=== PATIENT | female | born 2000 | race Two or more races ===

== ENCOUNTER 2025-08-22 21:11 | Emergency (ER) | payer MEDICAID, SELFPAY ==
[2025-08-22 21:56] VITALS: BP 111/70; PULSE 81; RESP 18; TEMP 36.6; O2SAT 98
--- NOTE | 2025-08-22 22:14 | EDNOTE_ITS ---
Upper Respiratory Inf. RME/HPI General Chief Complaint: Flu Like Symptoms Stated Complaint: FLU LIKE SYMPTOMS, 4 MONTHS Time Seen by Provider: 08/22/25 22:13 Source: patient Arrival date/time: 08/22/25 21:11 Mode of arrival: ambulatory Limitations: no limitations RME / HPI Complaint: cough and sore throat Onset (ago): day(s) (2 days) Duration: constant Severity: moderate Severity scale (1-10): 4 Able to tolerate fluids by mouth: Yes Associated symptoms: sore throat and other (Epistaxis x 10 minutes this morning at 10:00) Treatments prior to arrival: none Related Data Allergies Allergy/AdvReac Type Severity Reaction Status Date / Time No Known Allergies Allergy Verified 08/22/25 21:14 Review of Systems Constitutional Constitutional: Reports system reviewed and no additional complaints, except as documented Eyes Eyes: Reports system reviewed and no additional complaints, except as documented, Denies dry eyes, Denies exophthalmos and Reports floaters Cardiovascular Cardiovascular: Denies chest pain with activity and Denies claudication Past Medical History Past Medical History Comments PMH COMMENT: x 4-1/2 months ED Exam Narrative Physical exam: Posterior pharynx is erythematous without any exudate. And there is herpangina throughout General Limitations: Present no limitations General appearance: Present alert and in no apparent distress Head Head exam: Present atraumatic and normocephalic Eye Eye exam: Present normal appearance and EOMI ENT ENT exam: Present normal exam and normal oropharynx Neck Neck exam: Present normal inspection and full ROM Chest Chest inspection: Present normal inspection and symmetric chest wall rise Respiratory Respiratory exam: Present normal lung sounds bilaterally Cardiovascular Cardiovascular exam: Present regular rate and normal rhythm Abdominal Exam Abdominal exam: Present soft Extremities Exam Extremities exam: Present normal inspection and full ROM Back Exam Back exam: Present normal inspection and full ROM Neurological Exam Neurological exam: Present alert and oriented X3 Psychiatric Psychiatric exam: Present normal affect and normal mood Skin Skin exam: Present warm, dry, intact and normal color Course Course Course Narrative: Patient will have a rapid strep performed. Quality Measures none Orders Category Date Time Status Strep A Rapid Stat Lab 08/22/25 22:16 Completed DONE Vital Signs Vital signs: Vital Signs Temperature 97.8 F 08/22/25 21:56 Pulse Rate 81 08/22/25 21:56 Respiratory Rate 18 08/22/25 21:56 Blood Pressure 111/70 08/22/25 21:56 Pulse Oximetry (%) 98 08/22/25 21:56 Oxygen Delivery Method Room Air 08/22/25 21:56 Pulse ox is 98% room air Upper Respiratory Infection MDM Narrative MDM Narrative:: Patient will be discharged in no apparent distress and she is to follow-up with her [employer] DISPATCHER as necessary. Patient is to gargle with warm water and salt. If she becomes worse she may return. Patient data External records reviewed:: Other (specify) Clinical information provided by:: none Social determinants that could affect healthcare access:: none Patient has the following chronic illnesses:: NA How is presenting disease/condition affected by chronic disease/condition?: no chronic disease Evaluation data The following diagnostics were reviewed and interpreted by me:: other (specify) Lab and/or radiology exams considered but not ordered:: NA Interpretation Summary: NA Medications / Prescriptions Medications or Prescriptions considered but not ordered:: NA Medication administrations:: NA Consultations Consultation(s) initiated? (list below): No Consultation #1 (Physician, Specialty, Details): NA Diagnosis Upper Respiratory Differential Diagnosis: upper respiratory infection, sinusitis, viral infection and pharyngitis Most likely diagnosis given after review of the tests above:: NA Admission Indicated Admission indicated?: not indicated Explain why admission is indicated or not indicated:: NA Admission Request Was there a request for admission?: No Admission Attestation Admission request attestation: NA Disposition Plan Disposition Plan: Discharge Discharge Attestation Discharge Attestation: The patient and all family members were given an opportunity to ask questions and understood the discharge instructions. Discharge instructions specifically effects, indications for sooner follow up or return to the emergency department, and the expected course of current diagnosis. Patient condition: Stable Discharge Plan Plan Patient Disposition: HOME (Self Care) Discharge Disposition comment: Patient is discharged in no apparent distress Patient condition on transfer: Stable Problem List Clinical Impression: Upper respiratory infection Patient/Caregiver Discharge Instructions Discharge Activity: activity as tolerated Education Materials: ED URI, Viral, No Abx (Adult) Print Language: Upper Sorbian Stand Alone Forms: Mallorie Award Info., Patient Portal Info Letter UBALDO/JARON Supervising Physician KATHLEEN Supervising Physician: NIRAV
[2025-08-22 22:51] LABS: Strep A Rapid Negative (Negative)
== END 2025-08-22 23:29 | disposition home or self-care (01) ==
LOC: SERX 23:20
PROVIDERS: Physician Assistant; Emergency Provider Emergency Medicine
DX: O99.512 Diseases of the respiratory system complicating pregnancy, second trimester (principal); J06.9 Acute upper respiratory infection, unspecified; Z3A.00 Weeks of gestation of pregnancy not specified
CPT/HCPCS: 87651; 99281